=== PATIENT | female | born 2000 | race African-American/Black ===

== ENCOUNTER 2022-07-15 19:55 | Emergency (ER) | payer MEDICAID ==
[~2022-07-15] VITALS: Ht 147.3 cm; Wt 51.8 kg
[2022-07-15] MEDS ORDERED: LIDOCAINE 2% VISCOUS 15 ML SOLUTION UDCUP PO ONE (20:15)
[2022-07-15] MEDS ORDERED: ONDANSETRON HCL 4 MG/2 ML VIAL IM ONE (20:15)
[2022-07-15 20:18] LABS: BASOPHILS % (AUTO) 0.6 % (0.0-2.0); EOSINOPHILS % (AUTO) 1.6 % (1.0-6.0); HEMOGLOBIN 13.1 g/dL (12.0-16.0); LYMPHOCYTES # (AUTO) 1.2 K/uL (1.0-4.8); LYMPHOCYTES % (AUTO) 20.4 % (22.0-44.0); MEAN CORPUSCULAR HEMOGLOBIN 30.7 pg (26.0-34.0); MEAN CORPUSCULAR HGB CONC 33.7 G/dL (31.0-37.0); MEAN CORPUSCULAR VOLUME 91 fL (80-100); MONOCYTES # (AUTO) 0.7 K/uL (0.1-1.0); MONOCYTES % (AUTO) 11.9 % (2.0-9.0); NEUTROPHILS # (AUTO) 3.7 K/uL (1.8-7.7); NEUTROPHILS % (AUTO) 65.5 % (40.0-70.0); PLATELET COUNT (AUTO) 227 K/uL (150-450); RED BLOOD CELL COUNT(AUTO) 4.29 MIL/uL (4.00-5.20)
[2022-07-15 20:27] LABS: ANION GAP 6 mmol/L (8-16); CALCIUM, TOTAL 8.9 mg/dL (8.8-10.5); CARBON DIOXIDE 27 mmol/L (22-29); CHLORIDE 100 mmol/L (98-107); CREATININE 0.69 mg/dL (0.60-1.30); GLUCOSE,RANDOM 91 mg/dL (70-110); POTASSIUM 3.8 mmol/L (3.5-5.1); SODIUM SERUM 133 mmol/L (136-145); UREA NITROGEN, BLOOD 12 mg/dL (7-18)
[2022-07-15 20:29] LABS: GLOMERULAR FILTR. RATE CALC > 60 mL/min (>60)
[2022-07-15] MEDS ORDERED: ACET-2080 PO (21:02)
[2022-07-15] MEDS ORDERED: IBUP-426 PO (21:02)
[2022-07-15] MEDS ORDERED: GUAIFDM PO (21:02)
[2022-07-15 22:45] VITALS: BP 102/58
== END 2022-07-15 23:37 | disposition home or self-care (01) ==
LOC: EMS 19:55
DX: J02.9 Acute pharyngitis, unspecified (principal); F17.210 Nicotine dependence, cigarettes, uncomplicated
CPT/HCPCS: 99283; 80048; 84703; 85025; 36415; 96372; G0480; J2405

== ENCOUNTER 2022-07-17 11:25 | Emergency (ER) | payer MEDICAID ==
[~2022-07-17] VITALS: Ht 157.5 cm; Wt 59.0 kg
[~2022-07-17 11:25] MED LIST: ACET-2080 PO; GUAIFDM PO; IBUP-426 PO
[2022-07-17 11:53] LABS: COVID AG,FIA SOURCE NASAL SWAB
[2022-07-17 12:26] LABS: RAPID GROUP A STREP NEGATIVE (NEGATIVE)
[2022-07-17 12:32] LABS: INFLUENZA TYPE A NEGATIVE FOR TYPE A (NEGATIVE); INFLUENZA TYPE B NEGATIVE FOR TYPE B (NEGATIVE)
[2022-07-17] MEDS ORDERED: PENICILLIN G BENZATHINE LA 1,200,000 UNITS/2 ML SYRINGE IM ONE (13:00)
[2022-07-17] MEDS ORDERED: ACETAMINOPHEN/CODEINE 300 MG-30 MG/12.5 ML ELIXIR UDCUP PO ONE (13:00)
[2022-07-17] MEDS ORDERED: GUAFACSF5L PO (13:00)
[2022-07-17] MEDS ORDERED: ACET160E39 PO (13:00)
[2022-07-17] MEDS ORDERED: GuaiFENesin/D-METHORPHAN [SUGAR-FREE] 200-20MG/10 ML SYRUP UDCUP PO ONE (13:00)
[2022-07-17 14:15] VITALS: BP 105/76
== END 2022-07-17 14:28 | disposition home or self-care (01) ==
LOC: EMS 11:25
DX: J02.9 Acute pharyngitis, unspecified (principal); F17.210 Nicotine dependence, cigarettes, uncomplicated; Z20.822 Contact with and (suspected) exposure to COVID-19
CPT/HCPCS: 99283; 87426; 87430; 87804; 96372; J0561